=== PATIENT | female | born 1935 | race African-American/Black ===

== ENCOUNTER 2016-10-29 09:58 | Inpatient (IN) | payer MEDICARE, OTHER ==
--- NOTE | ~2016-10-29 | HP ---
History And Physical [place] [id number] [facility] [place]. [address] NAME: ARCHANA ANNA : 37 STATUS : ADM Justice PAT#: [id number] AGE: 81 ADM/REG DATE : 10/29/16 MR#: [id number] REPORT SERV DATE: 10/29/16 DICTATED BY: INOCENTE MENDEZ DATE: 10/29/16 REPORT STATUS : Draft TRANSCRIBED BY: MODL DATE: 10/29/16 DATE OF ADMISSION: 10/29/2016 CHIEF COMPLAINT: Seizure. HISTORY OF PRESENT ILLNESS: The patient is an 81-year-old female, who has a history of Alzheimer's dementia. She does have trouble with short-term memory and sometimes identifying people and her symptoms tend to oscillate. This morning, she was witnessed to have a tonic-colonic seizure by her daughter, it lasted a couple of minutes and then resolved. She bit her tongue, and she was brought to the hospital. She was bit sleepy, more confused after the seizure. Her last seizure was in her 30s. 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 She had a seizure at that time, but she has not been on chronic seizure medications. She has had no fevers or chills. She has had no new cough. She has not complained of any pain in her abdomen. She is complaining of some mild leg pain, which is just since the seizure. Really, no other major complaints. She was normal yesterday. PAST MEDICAL HISTORY: Positive for, 1. Alzheimer. 2. Seizure history remotely. Brain bleed with aneurysm in her 30s with a craniotomy. 3. Hypertension. 4. Hypercalcemia recently which had subsequently resolved. 5. She has an abdominal hernia which is old and chronic. ALLERGIES: PHENERGAN. PAST SURGICAL HISTORY: She had a brain aneurysm repair with a metal plate. A PillCam extraction after it got stuck and a cholecystectomy. FAMILY HISTORY: Positive for seizure disorder in a daughter. HOME MEDICATIONS: Reviewed and attached. REVIEW OF SYSTEMS: Full 10-point review of systems obtained. Pertinent positives are mentioned in the HPI. PHYSICAL EXAMINATION: VITAL SIGNS: Her blood pressure when I arrived, was in the 190s over 80s, it is currently 141/88 with a temp of 98.0, pulse of 77, respiratory rate 16, sats are 97%. GENERAL: Well-developed female HEENT: Normocephalic, atraumatic. Throat is clear. NECK: Supple. HEART: Regular rate and rhythm. LUNGS: Grossly clear. ABDOMEN: Soft. She does have a large midline hernia which is soft and nontender. EXTREMITIES: Warm and dry. She has some mild pedal edema. Pulses are 2+ at the feet. History And Physical [address] [address] NAME: ARCHANA ANNA : 37 STATUS : ADM Justice PAT#: [id number] AGE: 81 ADM/REG DATE : 10/29/16 MR#: [id number] REPORT SERV DATE: 10/29/16 DICTATED BY: INOCENTE MENDEZ DATE: 10/29/16 REPORT STATUS : Draft TRANSCRIBED BY: BRIAN DATE: 10/29/16 SKIN: Intact. NEURO: She is alert, but she is only oriented to person, but not place or time. She moves all four extremities appropriately and her cranial nerves II through XII appear to be intact. Her speech is intact, but she has difficulty following commands. LAB AND X-RAY STUDIES: BMP; basic metabolic panel is normal. LFTs are normal. Troponin is negative. Digoxin is 0.1. Ammonia is normal at 22. BNP is 103. CBC is essentially normal. Coags are normal. Urinalysis is negative. Chest x-ray does not reveal pneumonia. CT of the brain shows no acute infarct or hemorrhage. She has a prior right-sided craniotomy with a large region of encephalomalacia in the temporal lobes. EKG is unreadable and needs to be repeated. ASSESSMENT/PLAN: 1. Seizure activity this morning, with likely postictal state versus acute encephalopathy. No clear other etiology for encephalopathy today that is obvious. We will follow up on cultures. I placed her on some Keppra for seizures. I also ordered an EEG. She cannot have an MRI. She has a metal plate in her head. We will follow her clinical status and see if she needs additional imaging study or neuro involvement based on the next 24 hours. 2. Hypertension. She was poorly controlled when she got here, but she had not taken her a.m. Cardizem or Cozaar which we did administer. 3. History of Alzheimer's. I suspect some of the oscillation in her mental status today is due to her underlying dementia, we will follow. 4. History of remote brain bleed with aneurysm and craniotomy and subsequent repair. Certainly, this previous injury does place her at risk for seizure development. 5. Previous history of hypercalcemia, now resolved. Calcium is normal. 6. Deep venous thrombosis prophylaxis. Subcutaneous heparin. 7. Disposition. Pending above. ARIANNE/BRIAN Inocente Mendez M.D. / [id number] CC: MD HAMZAH Shah NATHAN
--- NOTE | ~2016-10-29 | DS ---
Discharge Summary [address] [place]. [address] NAME: ARCHANA ANNA : 37 STATUS : DIS IN PAT#: [id number] AGE: 81 ADM/REG DATE : 10/30/16 MR#: [id number] REPORT SERV DATE: 11/01/16 DICTATED BY: DESI STREET DATE: 10/31/16 REPORT STATUS : Draft TRANSCRIBED BY: BRIAN DATE: 10/31/16 ADMISSION DATE: 10/30/2016 DISCHARGE DATE: 10/31/2016 DISCHARGE DIAGNOSES: 1. 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 2. Seizure. 3. Alzheimer's dementia. 4. Hypertension. DISCHARGE MEDICATIONS: 1. Aspirin 81 mg p.o. daily. 2. Lipitor 10 mg p.o. at bedtime. 3. Vitamin D3 2000 units p.o. daily. 4. Diltiazem ER 240 mg p.o. daily. 5. Lasix 20 mg p.o. daily. 6. Keppra 500 mg p.o. b.i.d. 7. Cozaar 100 mg p.o. daily. 8. Multivitamin p.o. daily. 9. Hydralazine 25 mg p.o. b.i.d. DISPOSITION AND FOLLOWUP: The patient is medically stable for discharge. Follow up with primary care physician in one week. Follow up with Neurology as directed. HISTORY AND PHYSICAL: Per initial assessment. DISCHARGE VITALS: Temperature 97.3, heart rate 63, blood pressure 154/71, respiratory rate 16, O2 saturation 97 on room air. DISCHARGE LABORATORY DATA: WBC of 7.6, hemoglobin 12.7, hematocrit 39, platelets 343. Sodium 140, potassium 4, chloride 104, bicarb 28, BUN 15, creatinine 0.92, digoxin 0.1, TSH 1.05, troponin 0.02, ammonia 22. IMAGING: CT of the head without contrast, impression: 1. No acute infarct or hemorrhage. 2. Prior right-sided craniotomy with a large region of encephalomalacia in the coronal temporal lobes. Chest x-ray, impression: 1. Shallow inspiration with perihilar discoid atelectasis bilaterally. 2. Right paratracheal soft tissue density most likely vascular. HOSPITAL COURSE: This is an 81-year-old woman with past medical history of brain bleed in her 30s, status post craniotomy, hypertension, comes into the ED secondary to seizure activity. The patient was admitted. Neurologist was consulted. The patient was started on Keppra 500 mg p.o. b.i.d. EEG was done, results showed one generalized slowing. Two, focal Discharge Summary [place] [id number] [place]. [address] NAME: ARCHANA ANNA : 37 STATUS : DIS IN PAT#: [id number] AGE: 81 ADM/REG DATE : 10/30/16 MR#: [id number] REPORT SERV DATE: 11/01/16 DICTATED BY: DESI STREET DATE: 10/31/16 REPORT STATUS : Draft TRANSCRIBED BY: BRIAN DATE: 10/31/16 slowing involving the right frontal and temporal head region. Neurology was consulted. Further details per consult note. The patient instructed to continue Keppra 500 mg p.o. b.i.d. with outpatient followup with Neurology. Unable to do MRI due to metal plate in the head post craniotomy. The patient was noted to have uncontrolled hypertension. Hydralazine was started which improved blood pressure control. The patient will resume all medications as described above. PT did evaluate the patient. Case management arranged home health physical therapy. Further management as an outpatient. Instructed to follow up with primary care physician as directed above and Neurology as directed above. Total time for discharge planning, 35 minutes. ISABEL/BRIAN Oresets Carpio MD / [id number] CC: MD HAMZAH Shah NATHAN
--- NOTE | ~2016-10-29 | CN ---
Consultation Report [facility] [address] [place]. [address] NAME: ARCHANA ANNA : 37 STATUS : ADM IN PAT#: [id number] AGE: 81 ADM/REG DATE : 10/30/16 MR#: [id number] REPORT SERV DATE: 10/30/16 DICTATED BY: DATE: REPORT STATUS : Draft TRANSCRIBED BY: MODL DATE: 10/30/16 NEUROLOGY CONSULTATION DATE OF CONSULTATION: 10/30/2016 REASON FOR CONSULT: Seizure. HISTORY OF PRESENT ILLNESS: This is an 81-year-old female presented to [facility] secondary to a suspected seizure episode with the patient reported to have multiple episodes in the past with the family members who described those episodes as bilateral upper extremity clawing type of motion with yelling and talking nonsensical verbalization with events lasting anywhere from minutes up to an hour, post-event confusion, as well as lethargy and drowsiness. The patient's post-event confusion apparently lasted roughly two hours according to the patient's daughter. The patient apparently has had those events for the past year with the patient's event frequency usually occurred roughly once every three to six months. Prior to that the patient does not have any history of seizure except for when associated with aneurysm bleed when the patient was age 31. The patient for aneurysm bleeds was noted to have a craniectomy as well as aneurysm repair with metal plates and was no longer able to obtain MRI afterwards. The patient currently is not on any seizure medications. The patient's family reports the patient does have a history of memory issue for the past two to three years with the patient usually does not know the year or the month and is still able to recognize the family members and is able to do some activity of daily living for herself, although the patient does seem to have some problems with recent memory and at times does seems confused with the events that have occurred in the distant past. According to family members, prior to the hospitalization, the patient does not have any recent illness. No recent fever, chill, nausea, vomiting, chest pain, or shortness of breath. The patient does have a recent routine follow up with primary care physician and was not noted to have any problems. She does have recent medication adjustment with the patient taken off her water pill and placed with Lasix. Otherwise, the patient does not currently see a neurologist for her dementia or seizure-like activities. The patient, since the hospitalization, was placed on Keppra and does not appear to be much more drowsy. The patient and family denies any focal deficits and reports us it just appeared to have some problems getting her words out, but otherwise, does not appear to have any problem ambulating and currently appeared to be back to her baseline. PAST MEDICAL HISTORY: Significant for dementia as well as history of seizures in the past, history of aneurysm bleed, status post repair of a craniectomy as well as metal plate in the head, was told to be unable to obtain MRI afterwards, a history of hypertension, hypercalcemia subsequently resolved, abdominal hernia. The patient recently was noted to have a seizure-like activity once every three to six months. The patient was noted to have allergy to Phenergan. FAMILY HISTORY: Significant for seizure disorder in daughter. Consultation Report [place] [id number] [facility] [place]. [address] NAME: ARCHANA ANNA MIGUELINA : 37 STATUS : ADM IN [facility]#: [id number] AGE: 81 ADM/REG DATE : 10/30/16 MR#: [id number] REPORT SERV DATE: 10/30/16 DICTATED BY: DATE: REPORT STATUS : Draft TRANSCRIBED BY: MODL DATE: 10/30/16 SOCIAL HISTORY: Denies tobacco, alcohol, or recreational drug usage. MEDICATIONS: The patient's current home medications consist of aspirin, Lipitor, vitamin D3, diltiazem, Lasix, losartan, multivitamin. The patient, since the hospitalization, was placed on thiamine as well as Keppra. REVIEW OF SYSTEMS: Otherwise negative except for those mentioned in the HPI. PHYSICAL EXAMINATION: VITAL SIGNS: At the time of evaluation, the patient was noted to have vital signs with T-max of 98.3, heart rates of 50 to 80, respirations of 14 to 18, and blood pressure of 141 to 189 over 70 to 88. GENERAL: The patient is a well-developed, well nourished, in no acute distress. CARDIOVASCULAR: Show regular rate and rhythm. No carotid bruits were otherwise auscultated. PULMONARY: Clear to auscultation bilaterally. NEUROLOGICAL EXAMINATION: Generally, the patient is alert and oriented to person, place, but not to year or month which according to the family member has been consistent with the patient's baseline status. The patient is able to follow simple commands and have some difficulties with complex commands. Decreased attention span at the time of evaluation. Intact registration, but difficulties with recall. Cranial nerves II through XII, pupils equal, round, and reactive to light. Extraocular eye movement was noted to be intact with intact blink to threat response. The patient does have a craniectomy defect in the right frontal area, but otherwise reports a symmetrical facial sensation. Midline tongue. Normal palatal movement. Symmetrical facial expression was noted. Mild decreased hearing in bilateral ears. The patient does demonstrate 5/5 bilateral upper and lower extremity strength. Normal muscle, bulk, and tone. Normal [id number] examination without ataxia. 2+ reflexes throughout and downgoing toe on bilateral plantar reflexes. The patient is able to stand and ambulate without significant difficulties. LABORATORY STUDIES: Demonstrated white blood cell count of 7.6, hemoglobin of 12.7, hematocrit of 39.0, platelet count of 343. Chemistry panel: Sodium 141, potassium 3.5, chloride of 103, bicarb of 29, BUN of 10, creatinine 0.90. Glucose of 83, calcium of 10.3. Serum TSH of 1.05. Urinalysis demonstrated negative leukocyte esterase, negative nitrite. CT scan of the brain was reviewed which the patient does demonstrated right temporal area encephalomalacia likely secondary to previous hemorrhage as well as craniectomy defect in the associated area. The patient's EEG report was reviewed. No ongoing seizure activity was otherwise noted. The patient was noted to have swelling in the right frontal and temporal area likely secondary to encephalomalacia and underlying structure defect. IMPRESSION: Seizure. Family reports multiple episodes of bilateral upper extremity clawing Consultation Report [address] [place]. [address] NAME: ARCHANA ANNA MIGUELINA : 37 STATUS : ADM IN PAT#: [id number] AGE: 81 ADM/REG DATE : 10/30/16 MR#: [id number] REPORT SERV DATE: 10/30/16 DICTATED BY: DATE: REPORT STATUS : Draft TRANSCRIBED BY: BRIAN DATE: 10/30/16 type activities with yelling, screaming, as well as nonsensical verbalization lasting several minutes to up an hour with post-event confusion, lethargy, events occurred roughly once every three to six months for the past year, concern for complex partial seizure. We are recommending continue Keppra 500 mg p.o. b.i.d., and otherwise, unfortunately unable to obtain MRI of the brain secondary to aneurysm repair as well as a metal plate in the brain. We are recommending outpatient Neurology followup for dementia as well as management of seizure like activities. RECOMMENDATION: 1. Continue Keppra 500 mg p.o. b.i.d. 2. Discontinue MRI. 3. Outpatient Neurology followup. [facility]L Marty Donis MD / [id number] CC: MD HAMZAH Shah NATHAN
--- NOTE | ~2016-10-29 | EEG ---
Electroencephalogram [facility] [address] [facility] [place]. [address] NAME: ARCHANA ANNA : 37 STATUS : ADM Justice PAT#: [id number] AGE: 81 ADM/REG DATE : 10/29/16 MR#: [id number] REPORT SERV DATE: 10/29/16 DICTATED BY: ZULAY LUBIN DATE: 10/29/16 REPORT STATUS : Draft TRANSCRIBED BY: MODL DATE: 10/29/16 EEG NUMBER: [id number]. TEST LOCATION: U bed 4. HOURS OF SLEEP: Unknown. DIRECTOR CONSUMER: Cody Blount INTRODUCTION: This is an 18-channel EEG recorded with scalp electrodes in the International 10-20 system. The patient is an 81-year-old female with possible seizure and a delirium. She has a history of an aneurysm repair, approximately 50 years ago. This apparently involved the right frontal head region. CURRENT MEDICATIONS: Include Keppra. DESCRIPTION: The background rhythm while awake consisted of a mixture of frequencies. From the left hemisphere 6 to 7 hertz activity was present occipitally, although there were slower and faster frequencies intermixed and a well-formed background activity was not recorded. From the right central head region, there were slower frequencies occipitally in the 6 hertz range and intermittent and fairly prominent delta activity with frequencies in the 2 to 3 hertz range from the central head region. The temporal regions while awake were obscured by a large amount of muscle artifact and there was a persistent electrode artifact at T4 in the right mid temporal head region. This has compromised evaluation of this particular area. She became drowsy marked by slowing of the background rhythm and resolution of some of the muscle artifact from the temporal head regions. The electrode artifact at T4, however, remain. Well-formed stage 2 sleep was not recorded. Photic stimulation from the 1 through 21 hertz frequencies did not produce a significant change in the background activity. Hyperventilation was not performed. On the EKG lead, a regular rhythm was recorded. IMPRESSION: THIS EEG IS ABNORMAL DUE TO: 1. GENERALIZED SLOWING. 2. FOCAL SLOWING INVOLVING THE RIGHT FRONTAL AND TEMPORAL HEAD REGION. THERE WAS NO EPILEPTIFORM ACTIVITY NOTED, ALTHOUGH THE RIGHT TEMPORAL REGION WAS COMPROMISED BY ELECTRODE ARTIFACT. GINO/BRIAN Zulay Lubin M.D. / [id number] Electroencephalogram [address] [place]. [address] NAME: ARCHANA ANNA : 37 STATUS : ADM Justice PAT#: [id number] AGE: 81 ADM/REG DATE : 10/29/16 MR#: [id number] REPORT SERV DATE: 10/29/16 DICTATED BY: ZULAY LUBIN DATE: 10/29/16 REPORT STATUS : Draft TRANSCRIBED BY: BRIAN DATE: 10/29/16 CC: MD HAMZAH Shah NATHAN
[~2016-10-29 09:58] MED LIST: ASAB PO; COZAAR100 MG PO; DILT-XR240 MG PO; L20 PO; LIPITOR10 PO; MULTI-VIT HP PO
[2016-10-29] MEDS ORDERED: L20 PO (11:18)
[2016-10-29] MEDS ORDERED: VITAMIN D31000 UNIT PO (11:19)
[2016-10-29 11:46] LABS: ASCORBIC ACID (UR NOT ORDER) NEG (NEG); BILIRUBIN, URINE NEGATIVE (NEG); ER URINALYSIS TAT 0 Hrs 09 Mins; KETONE, URINE NEGATIVE (NEG); LEUKOCYTE ESTERASE(NOT OR NEG (NEG); NITRITE (URINE) NEG (NEG); WBC (NOT ORDERED) (RFLEX) 2 (0-5)
[2016-10-29 12:00] LABS: BASOPHILS 0 %; EOSINOPHILS 0 %; ER CBC TAT 0 Hrs 03 Mins; HEMATOCRIT 38.1 % (36.0-48.0); HEMOGLOBIN 12.4 g/dL (12.0-16.0); IMMATURE GRANULOCYTES 0.2 %; IMMATURE GRANULOCYTES ABSOLUTE 0.02 10/3/uL (0.0-0.11); LYMPHOCYTES 15.1 %; LYMPHOCYTES ABSOLUTE 1.39 10/3/uL (0.67-4.30); MEAN CORPUS HGB CONC 32.5 g/dL (32.0-36.0); MEAN CORPUSCULAR HEMOGLOB 27.6 pg (26.0-34.0); MEAN CORPUSCULAR VOLUME 84.9 fL (80-100); MEAN PLATELET VOLUME 9.8 fL (9.2-13.0); MONOCYTES 4.2 %; MONOCYTES ABSOLUTE 0.39 10/3/uL (0.21-1.20); NEUTROPHILS 80.5 %; NEUTROPHILS ABSOLUTE 7.38 10/3/uL (2.02-8.40); PLATELET COUNT 289 10/3/uL (150-400); RBC DISTRIBUTION WIDTH 15.6 % (12.0-16.0); RED CELL COUNT 4.49 10/6/uL (4.0-5.6); WHITE BLOOD CELLS 9.2 10/3/uL (4.5-10.5)
[2016-10-29 12:01] LABS: MANUAL DIFF NO %
[2016-10-29 12:06] LABS: PROTIME (NOT ORD) 13.2 SEC (12.0-14.5)
[2016-10-29 12:10] LABS: PARTIAL THROMBO TIME 25.9 SEC (22.5-37.2)
[2016-10-29 12:31] LABS: B NATRIURETIC PEPTIDE (BNP) 103.8 PG/ML (< 100.0)
[2016-10-29 12:52] LABS: ALBUMIN 3.7 G/DL (3.5-5.0); ALKALINE PHOSPHATASE 62 U/L (45-117); BUN (BLOOD UREA NITROGEN) 11 MG/DL (6-23); CALCIUM, SERUM 10.3 MG/DL (8.5-10.4); CHLORIDE, SERUM 105 MMOL/L (96-112); CO2 (CARBON DIOXIDE) 29 MMOL/L (24-34); CREATININE 0.93 MG/DL (0.55-1.02); DIGOXIN 0.1 NG/ML (0.8-2.0); DIRECT BILIRUBIN 0.2 MG/DL (0.0-0.4); GFR AFRICAN AMERICAN 67 ML/MIN (>=60); GFR NON AFRICAN AMERICAN 58 ML/MIN (>=60); GLUCOSE, SERUM 93 MG/DL (60-99); INDIRECT BILIRUBIN(NOT ORDER) 0.6 MG/DL (0.1-0.9); POTASSIUM, SERUM 4.3 MMOL/L (3.5-5.3); SGOT(AST) 18 U/L (5-40); SGPT(ALT) 19 U/L (5-65); TOTAL BILIRUBIN 0.8 MG/DL (0-1.2); TOTAL PROTEIN 7.8 G/DL (6.0-8.5); TROPONIN I 0.02 NG/ML (<0.05)
[2016-10-29 12:53] LABS: CHEST PAIN PROFILE TAT 0 Hrs 55 Mins; SODIUM, SERUM 144 MMOL/L (135-148)
[2016-10-29 16:12] LABS: PROCALCITONIN <0.05 ng/mL (<0.5)
[2016-10-30 05:12] LABS: BASOPHILS 0.1 %; BASOPHILS ABSOLUTE 0.01 10/3/uL (0.0-0.16); EOSINOPHILS 1.2 %; EOSINOPHILS ABSOLUTE 0.09 10/3/uL (0.0-0.53); HEMOGLOBIN 12.7 g/dL (12.0-16.0); IMMATURE GRANULOCYTES 0.1 %; IMMATURE GRANULOCYTES ABSOLUTE 0.01 10/3/uL (0.0-0.11); LYMPHOCYTES 34.7 %; LYMPHOCYTES ABSOLUTE 2.62 10/3/uL (0.67-4.30); MEAN CORPUS HGB CONC 32.6 g/dL (32.0-36.0); MEAN CORPUSCULAR HEMOGLOB 27.4 pg (26.0-34.0); MEAN CORPUSCULAR VOLUME 84.2 fL (80-100); MEAN PLATELET VOLUME 9.7 fL (9.2-13.0); MONOCYTES 7.5 %; MONOCYTES ABSOLUTE 0.57 10/3/uL (0.21-1.20); NEUTROPHILS 56.4 %; NEUTROPHILS ABSOLUTE 4.26 10/3/uL (2.02-8.40); PLATELET COUNT 343 10/3/uL (150-400); RBC DISTRIBUTION WIDTH 15.9 % (12.0-16.0); RED CELL COUNT 4.63 10/6/uL (4.0-5.6); WHITE BLOOD CELLS 7.6 10/3/uL (4.5-10.5)
[2016-10-30 05:15] LABS: MANUAL DIFF NO %
[2016-10-30 05:27] LABS: BUN (BLOOD UREA NITROGEN) 10 MG/DL (6-23); CALCIUM, SERUM 10.3 MG/DL (8.5-10.4); CHLORIDE, SERUM 103 MMOL/L (96-112); CO2 (CARBON DIOXIDE) 29 MMOL/L (24-34); GFR AFRICAN AMERICAN 70 ML/MIN (>=60); GFR NON AFRICAN AMERICAN 60 ML/MIN (>=60); GLUCOSE, SERUM 83 MG/DL (60-99); POTASSIUM, SERUM 3.5 MMOL/L (3.5-5.3); SODIUM, SERUM 141 MMOL/L (135-148)
[2016-10-31 05:18] LABS: CALCIUM, SERUM 10.2 MG/DL (8.5-10.4); CHLORIDE, SERUM 104 MMOL/L (96-112); CO2 (CARBON DIOXIDE) 28 MMOL/L (24-34); CREATININE 0.92 MG/DL (0.55-1.02); GFR AFRICAN AMERICAN 68 ML/MIN (>=60); GFR NON AFRICAN AMERICAN 59 ML/MIN (>=60); GLUCOSE, SERUM 82 MG/DL (60-99); SODIUM, SERUM 140 MMOL/L (135-148)
[2016-10-31 05:24] LABS: BUN (BLOOD UREA NITROGEN) 15 MG/DL (6-23)
[2016-10-31] MEDS ORDERED: APRES25 PO (16:59)
[2016-10-31] MEDS ORDERED: KEPPRA500 PO (16:59)
== END 2016-10-31 17:36 | disposition home health service (06) | DRG 101 ==
LOC: ER 09:58 → CDU1 11:45
PROVIDERS: Emergency Medicine; Internal Medicine
DX: G40.89 Other seizures (principal); G30.9 Alzheimer's disease, unspecified; F02.80 Dementia in other diseases classified elsewhere, unspecified severity, without behavioral disturbance, psychotic disturbance, mood disturbance, and anxiety; I10 Essential (primary) hypertension; Z79.82 Long term (current) use of aspirin; Z88.8 Allergy status to other drugs, medicaments and biological substances
CPT/HCPCS: 70450; 71010; 80048; 80076; 80162; 81001; 82140; 82330; 83735; 83880; 84145; 84443; 84484; 85025; 85610; 85730; 87040; 93005; 95816; 97161-GP; 97165-GO; 99291; A9270-GY; G8978-CJ-GP; G8979-CJ-GP; G8980-CJ-GP; G8987-CJ-GO; G8988-CJ-GO; G8989-CJ-GO; J1953; J3411